=== PATIENT | female | born 1950 | race African-American/Black ===

== ENCOUNTER 2016-11-21 16:13 | Inpatient (IN) | payer OTHER ==
[2016-11-21] MEDS ORDERED: BAYER CHEWABLE81 MG PO (16:53)
[2016-11-21 17:01] VITALS: BP 155/67; BMI 27.8
--- NOTE | 2016-11-21 17:30 | NUR ---
OFF FLOOR TO MRI VIA STRETCHER.
--- NOTE | 2016-11-21 18:10 | NUR ---
RETURNED TO ROOM FROM MRI.
--- NOTE | 2016-11-21 19:20 | NUR ---
RECIEVED SHIFT REPORT. PT IS LYING IN BED. ALERT AND ORIENTED AND ABLE TO VERBALIZE NEEDS. IV IS PATENT AND SALINE LOC AT THIS TIME. PT DENIES ANY PAIN AT THIS TIME. NO NEEDS ARE VERBALIZED AT THIS TIME. WILL CONTINUE TO MONITOR. VISITOR IS AT THE BEDSIDE. SIDE RAILS ARE UP X 2. BED IS IN LOWEST POSITION. BED ALARM PLACED ON FOR SAFETY. CALL LIGHT IS WITHIN REACH.
[2016-11-21 20:00] VITALS: BP 143/65
--- NOTE | 2016-11-21 20:00 | NUR ---
SHIFT ASSESSMENT COMPLETED. 16F INDWELLING CATHETER PLACED WITH NO RESISTANCE AND STERILE TECHNIQUE. RECIEVED BACK 200ML MOON URINE. PT TOLERATED WELL. URINE SAMPLE COLLECTED PER ORDER. SCD'S PLACED ON PT. NO NEEDS ARE VOICED. WILL MONITOR. SIDE RAILS X 2. BED LOW. BED ALARM ON. CALL LIGHT IN REACH.
--- NOTE | 2016-11-21 20:17 | NUR ---
URINE SENT TO LABS FOR WARRENTED TESTS.
[2016-11-21 21:06] LABS: APPEARANCE CLEAR (CLEAR); BILIRUBIN NEGATIVE (NEGATIVE); COLOR YELLOW (YELLOW); GLUCOSE NEGATIVE (NEGATIVE); KETONE NEGATIVE (NEGATIVE); NITRITE NEGATIVE (NEGATIVE); PROTEIN NEGATIVE (NEGATIVE); SPECIFIC GRAVITY 1.025 (1.005-1.020); UROBILINOGEN NORMAL (NORMAL)
[2016-11-21 21:40] LABS: BASOPHILS 0.2 % (0-2); EOSINOPHILS 2.5 % (0-7); HEMATOCRIT 38.1 % (36.0-48.0); HEMOGLOBIN 12.5 g/dL (12-16); LYMPHOCYTES 26.4 % (15-50); MCH 30.6 pg (26.0-34.0); MCHC 32.8 g/dL (31.0-37.0); MCV 93.2 fL (80.0-100.0); MEAN PLATELET VOLUME 10.3 fL (7.4-10.4); MONOCYTES 9.1 % (2-11); NEUTROPHILS 61.8 % (40-80); PLATELET COUNT 175 10x3/uL (130-400); RBC 4.09 10x6/uL (4.00-5.40); RDW 13.6 % (11.5-14.5); WBC 4.1 10x3/uL (4.8-10.8)
[2016-11-21 21:57] LABS: ALBUMIN 3.6 g/dL (3.4-5.0); ANION GAP 11.4 mmol/L (8-16); BILIRUBIN - TOTAL 1.27 mg/dL (0.2-1.3); CALCIUM 11.7 mg/dL (8.5-10.1); CARBON DIOXIDE 27.3 mmol/L (21.0-32.0); CREATININE - SERUM 0.9 mg/dL (0.6-1.3); POTASSIUM - SERUM 3.7 mmol/L (3.5-5.1); PROTEIN - SERUM 8.2 g/dL (6.4-8.2)
[2016-11-22] VITALS (13 sets, daily range): BP systolic 145–160; BP diastolic 57–79
--- NOTE | 2016-11-22 07:45 | NUR ---
PT AOX4 RESP EVEN AND NONLABORED PT DENIES NEEDS AT THIS TIME IV TO LEFT AC PATENT AND INTACT SRX2 BED AT LOWEST SETTING CALL LIGHT WITHIN REACH WILL CONTINUE TO MONITOR
[2016-11-22 10:52] LABS: BASOPHILS 0.4 % (0-2); HEMATOCRIT 34.7 % (36.0-48.0); HEMOGLOBIN 11.4 g/dL (12-16); MCH 30.7 pg (26.0-34.0); MCHC 32.9 g/dL (31.0-37.0); MCV 93.5 fL (80.0-100.0); MEAN PLATELET VOLUME 10.3 fL (7.4-10.4); MONOCYTES 9.2 % (2-11); NEUTROPHILS 60.4 % (40-80); PLATELET COUNT 156 10x3/uL (130-400); RBC 3.71 10x6/uL (4.00-5.40); RDW 13.7 % (11.5-14.5); WBC 4.5 10x3/uL (4.8-10.8)
[2016-11-22 11:02] LABS: ALBUMIN 3.2 g/dL (3.4-5.0); BILIRUBIN - TOTAL 0.8 mg/dL (0.2-1.3); CALCIUM 11.3 mg/dL (8.5-10.1); CARBON DIOXIDE 26.9 mmol/L (21.0-32.0); CREATININE - SERUM 0.9 mg/dL (0.6-1.3); POTASSIUM - SERUM 3.9 mmol/L (3.5-5.1); PROTEIN - SERUM 7.3 g/dL (6.4-8.2)
--- NOTE | 2016-11-22 14:12 | NUR ---
Patient Name: JEVON SOLOMON Admission Status: Elective Accout number: [id number] Admission Date: 11-21-2016 : 1950 Admission Diagnosis: Attending: ALICIA CHOI Current LOS: 1 Anticipated DC Date: 11-25-2016 Planned Disposition: Inpatient Rehab Facility Primary Insurance: [facility] [place] BY [facility] MED[employer] Discharge Planning Comments: CM MET WITH PATIENT AND SON (JHOANA) REGARDING D/C NEEDS AND PLANS. PATIENT STATED SHE LIVES AT HOME WITH SON AND WILL RETURN THERE. PATIENT HAS 8 STEPS TO ENTER HOME AND NO STAIRS INSIDE. PATIENT IS INDEPENDENT WITH HER CARE AND HAS NO DME AT HOME. PATIENTS PCP IS DR. VILLAGRAN AND PHARMACY IS [facility] ON [facility]. PATIENT WANTS TO GO TO IP REHAB BUT HAS SIGNED THE GURMEET FORM FOR [facility] [facility] AND [facility] IF NOT ACCEPTED TO IP REHAB. CM WILL CONTINUE TO FOLLOW PATIENT WITH D/C NEEDS AND PLANS. PCP DR. TYSHAWN DEJESUS ON [facility] [phone] JHOANA (SON) [phone] Lunch Truck Operator: Pascale Jaramillo Is the patient Alert and Oriented? Yes 0 * How many steps to enter\exit or inside your home? 8 0 * PCP DR. VILLAGRAN 0 * Pharmacy [facility] 0 * Preadmission Environment Home with Family 0 * ADLs Independent 0 * Equipment None 0 * List name and contact numbers for known caregivers / representatives who currently or will assist patient after discharge: JHOANA (SON) [phone] 0 * Community resources currently utilized None 0 * Additional services required to return to the preadmission environment? Yes 0 * Can the patient safely return to the preadmission environment? No 0 * Has this patient been hospitalized within the prior 30 days at any hospital? No 0 Grand Total: 0
--- NOTE | 2016-11-22 19:35 | NUR ---
RECIEVED SHIFT REPORT. PT IS IN SURGERY AT THIS TIME.
--- NOTE | 2016-11-22 20:10 | NUR ---
RECIEVED PT FROM SURGERY. VSS. SCD'S HOOKED UP. IV PATENT AND FLUIDS RUNNING FROM SURGERY. RUVALCABA IS DRAINING URINE BY GRAVITY. DRESSING TO RIGHT HIP C/D/I. O2 @ 2 PER NASAL CANNULA. PT IS ALERT AND ORIENTED AND ABLE TO VERBALIZE NEEDS. PT DENIES ANY PAIN AT THIS TIME. NO NEEDS ARE VERBALIZED AT THIS TIME. WILL CONTINUE TO MONITOR. FAMILY IS AT THE BEDSIDE. SIDE RAILS ARE UP X 2. BED IS IN LOWEST POSITION. BED ALARM IS PLACED ON FOR SAFETY. CALL LIGHT IS WITHIN REACH.
--- NOTE | 2016-11-22 20:34 | NUR ---
SHIFT ASSESSMENT COMPLETED. FLUIDS AND NIGHT MEDS ADMINISTERED PER ORDER. NO NEEDS ARE VOICED. WILL MONITOR. FAMILY AT BEDSIDE. SIDE RAILS X 2. BED LOW. CALL LIGHT IN REACH.
[2016-11-23] VITALS (7 sets, daily range): BP systolic 112–165; BP diastolic 59–78
[2016-11-23 06:56] LABS: BASOPHILS 0.2 % (0-2); EOSINOPHILS 0.2 % (0-7); HEMATOCRIT 33.3 % (36.0-48.0); HEMOGLOBIN 10.8 g/dL (12-16); IMMATURE GRANULOCYTES 0.2 % (0-5); LYMPHOCYTES 13.9 % (15-50); MCH 30.3 pg (26.0-34.0); MCHC 32.4 g/dL (31.0-37.0); MCV 93.3 fL (80.0-100.0); MEAN PLATELET VOLUME 10.4 fL (7.4-10.4); MONOCYTES 9.5 % (2-11); PLATELET COUNT 171 10x3/uL (130-400); RBC 3.57 10x6/uL (4.00-5.40); RDW 13.7 % (11.5-14.5); WBC 5.3 10x3/uL (4.8-10.8)
[2016-11-23 07:00] LABS: ALBUMIN 2.9 g/dL (3.4-5.0); ANION GAP 12.7 mmol/L (8-16); BILIRUBIN - TOTAL 0.8 mg/dL (0.2-1.3); CALCIUM 10.3 mg/dL (8.5-10.1); CARBON DIOXIDE 24.3 mmol/L (21.0-32.0); PROTEIN - SERUM 6.4 g/dL (6.4-8.2)
--- NOTE | 2016-11-23 09:00 | NUR ---
REPORT RECIEVED ASSUMED CARE. PATIENT IN BED WITH IV INTACT. NO COMPLAINTS AT THIS TIME. ASSESSMENT COMPLETE, VS STABLE. FAMILY AT BEDSIDE. DRESSING TO RIGHT HIP CDI. CALL LIGHT WITHIN REACH.
--- NOTE | 2016-11-23 12:00 | NUR ---
PATIENT SITTING UP IN CHAIR AT THIS TIME WITH NO COMPLAINTS. CALL LIGHT WITHIN REACH.
--- NOTE | 2016-11-23 13:21 | OP ---
PATIENT NAME: JEVON SALDAÑA MEDICAL RECORD: [id number] :[birth year] LOCATION:[id number] ADMISSION DATE:11/21/16 SURGEON: JEAN CARLOS MCGINNIS DO DATE OF OPERATION: 11/22/2016 PROCEDURE PERFORMED: Right total hip arthroplasty. PREOPERATIVE DIAGNOSIS: Right femoral neck fracture. POSTOPERATIVE DIAGNOSES: Right femoral neck fracture with a suspicion for possible pathologic fracture, bone was sent for pathology. INDICATIONS: Ms. Saldaña is a 66-year-old female who presented to a walk-in clinic after falling a couple days ago. She cannot bear weight on the right hip. 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 She had not had any other systemic illnesses or problems. She was seen in the walk-in clinic. X-rays were taken and femoral neck fractures seen. Due to her history they ordered an MRI. MRI was read as a femoral neck fracture, did not appear to be suspicious on the MRI for pathologic fracture. After seeing that and seeing the x-rays, she was consented for a right total hip arthroplasty. Due to her age and activity level, she has not had any antecedent groin pain or any problems with her hip prior to this. After discussing these findings with her, she was consented for right total hip arthroplasty. SURGEON: Jean Carlos Mcginnis DO COMPLICATIONS: None. ESTIMATED BLOOD LOSS: 200 mL. DESCRIPTION OF PROCEDURE: The patient was taken to the operative suite, placed in supine position, given general anesthetic and intubated. Once this was done, the boot on the right leg was placed with a stocking Webril and Coban and then placed into the boot with pad over the dorsum of the foot and the anterior tibia and she was moved over to the Medacta table and slid down to the peroneal post and the boot was put onto the traction table. Once this was done, the left leg was put in a well leg elise and well padded. The right arm was positioned as well across her chest and well padded. The right leg was then draped out with a 10-15 drape. Once this was done, a timeout was performed, everyone was in agreement this is our correct patient, the correct side and the correct patient. She was given 2 grams of Ancef preoperatively. She does have a PENICILLIN ALLERGY; however, she did not have a reaction to the Ancef. Once this is done, the right leg was prepped and draped in sterile fashion and the procedure commenced with incision made down to the tensor fascia andrea fascia, it was then incised. The anterior fascia was from the muscle belly. Adson Vic was then used to push the muscle belly posterior in the fascia anteriorly. Then, dissection was carefully made down to the rectus fascia. This was divided and then the retractor was placed in the horizontal position retracting tensor fascia andrea laterally and the rectus medially. Careful dissection was made down to the vessels. The ascending branch of the lateral femoral circumflex, these were identified and tied off and coagulated with the Aquamantys and then divided with the plasma blade. Dissection was made down to the capsule at that point, removing the fat pad and releasing the rectus off its origin of the pelvis, the indirect head. Then, 2 Hohmann were placed around the femoral neck. A capsulotomy was then performed and the capsule was tagged. OPERATIVE REPORT [id number] JEVON SALDAÑA Once this was done, the retractors were placed intracapsular and a femoral neck cut was made. The bone was then taken in chunks as it fell right apart and this was likely due to the fracture. The femoral head corkscrew was then placed into the femoral head and the femoral head was removed from the acetabulum. At that time, it was inspected and seemed to have some areas of blackness on the cartilage itself of the femoral head and then the acetabulum was viewed and the same thing was seen there to have areas of blackness in the cartilage of the acetabulum. Once this was done, the pathologist was called in order to come look at the pathology of the bone. They informed that they would look at it tomorrow morning. The procedure proceeded then with reaming acetabulum, first medializing and then reaming up to 52 and then doing a line to line cup of 52 having good press fit with a dual mobility cup in the correct position. This was done under fluoroscopy. Approximately 45 degrees of abduction and 15-20 degrees of anteversion. Once this was done, attention was drawn to the femur. Releases of the pubofemoral ligament and the posterior capsule were done. A Hohmann were placed around the posterior femur and over the greater trochanter. The femur was then externally rotated and adducted and extended in order to get into good position. Cookie cutter was then made to enter the canal and the canal finder was then used to enter the canal itself. Broaching then began with a double 0 up to a 5 and 5 was trialed with a minus neck and not seem to be long enough; therefore a 6 broach was placed in and the 6 with minus neck fit very well and seemed to be appropriate length on x-ray. Once this was done, the final implants were then given and passed off with a minus neck, 28 head and a 52 dual mobility head placed on that. The 6 stem was also used. This was on the stem. Once this is all entered, the hip was reduced and x-rays were taken and seemed to be in a very good position and the femur was inspected with fluoro not seeing any cracks distally or proximally any fractures. After this was done, the wound was irrigated thoroughly and the capsule was closed with a #1 Vicryl pop off. Irrigation was then done again and dried very well. Inés was then placed into the wound and the tensor fascia andrea fascia was closed first with a couple of kelgck-lc-hyaik stitches with #1 pop off and then in a locked running stitch with a #1 Vicryl. Once this was done, the skin was closed with 2-0 Vicryl in an inverted interrupted fashion and a Prineo Dermabond was placed over the skin and then a Telfa and Tegaderm were placed over the wound. The patient was awakened in stable condition and taken to recovery. Estimated blood loss is 200. TRANSINT:[id number] Voice Confirmation ID: [id number] DOCUMENT ID: [id number] JEAN CARLOS MCGINNIS DO at 1321 CC: [id number] DICTATION DATE: 11/22/161918 FISH FARMER: 11/22/16 2332 ADM IN [facility] [address] [place] [address]
--- NOTE | 2016-11-23 17:05 | NUR ---
PAGED RENETTA FOR ORDERS FOR TEMP.
--- NOTE | 2016-11-23 17:45 | NUR ---
NEW ORDERS RECIEVED AND CARRIED OUT.
--- NOTE | 2016-11-23 18:00 | NUR ---
SPOKE WITH DR. CHOI ABOUT PATIENTS FEVER. NEW ORDERS RECIEVED AND CARRIED OUT. PATIENT IN BED WITH IV INTACT. NO COMPLAINTS AT THIS TIME. CALL LIGHT WITHIN REACH.
--- NOTE | 2016-11-23 19:25 | NUR ---
RECIEVED SHIFT REPORT. PT IS LYING IN BED. ALERT AND ORIENTED AND ABLE TO VERBALIZE NEEDS. IV IS PATENT AND FLUIDS ARE RUNNING PER ORDER. RUVALCABA IS DRAINING URINE BY GRAVITY. DRESSING TO RIGHT HIP C/D/I. PT STATES PAIN IS 02/14. SCD'S ON. PT WAS UP WITH PHYSICAL THERAPY TODAY. NO NEEDS ARE VERBALIZED AT THIS TIME. WILL CONTINUE TO MONITOR. SIDE RAILS ARE UP X 2. BED IS IN LOWEST POSITION. BED ALARM IS ON FOR SAFETY. CALL LIGHT IS WITHIN REACH.
--- NOTE | 2016-11-23 20:27 | NUR ---
SHIFT ASSESSMENT COMPLETED. NIGHT MEDS GIVEN WITH NO PROBLEMS. NO NEEDS ARE VOICED. WILL MONITOR. SIDE RAILS X 2. BED LOW. BED ALARM ON. CALL LIGHT IN REACH.
[2016-11-24] VITALS: BP 110/60
--- NOTE | 2016-11-24 04:10 | NUR ---
URINE SENT TO LAB FOR WARRENTED TESTS.
[2016-11-24 05:50] LABS: BASOPHILS 0.2 % (0-2); EOSINOPHILS 1.2 % (0-7); HEMATOCRIT 29.1 % (36.0-48.0); HEMOGLOBIN 9.6 g/dL (12-16); IMMATURE GRANULOCYTES 0.4 % (0-5); LYMPHOCYTES 21.4 % (15-50); MCH 30.2 pg (26.0-34.0); MCV 91.5 fL (80.0-100.0); MEAN PLATELET VOLUME 10.4 fL (7.4-10.4); MONOCYTES 13.8 % (2-11); PLATELET COUNT 161 10x3/uL (130-400); RBC 3.18 10x6/uL (4.00-5.40); RDW 13.4 % (11.5-14.5); WBC 4.9 10x3/uL (4.8-10.8)
[2016-11-24 06:12] LABS: ALBUMIN 2.3 g/dL (3.4-5.0); ANION GAP 9.3 mmol/L (8-16); BILIRUBIN - TOTAL 0.78 mg/dL (0.2-1.3); CALCIUM 10.5 mg/dL (8.5-10.1); CARBON DIOXIDE 26.3 mmol/L (21.0-32.0); CREATININE - SERUM 0.9 mg/dL (0.6-1.3); POTASSIUM - SERUM 3.6 mmol/L (3.5-5.1); PROTEIN - SERUM 6.3 g/dL (6.4-8.2)
--- NOTE | 2016-11-24 07:45 | NUR ---
PT AOX4 RESP EVEN AND NONLABORED PT DENIES NEEDS AT THIS TIME SRX2 BED AT LOWEST SETTING CALL LIGHT WITHIN REACH WILL CONTINUE TO MONITOR
[2016-11-24 08:24] LABS: APPEARANCE CLEAR (CLEAR); BILIRUBIN NEGATIVE (NEGATIVE); COLOR YELLOW (YELLOW); GLUCOSE NEGATIVE (NEGATIVE); KETONE NEGATIVE (NEGATIVE); NITRITE NEGATIVE (NEGATIVE); PROTEIN NEGATIVE (NEGATIVE); SPECIFIC GRAVITY 1.015 (1.005-1.020); UROBILINOGEN NORMAL (NORMAL)
[2016-11-24 08:28] LABS: BACTERIA FEW /hpf (NONE SEEN); EPITHELIAL CELLS 0-5 /hpf (0-5); HYALINE CAST OCC /lpf (NONE SEEN); MUCUS >1+ /lpf (NONE SEEN); RED CELLS - URINE 0-5 /hpf (0-5); WHITE CELLS - URINE OCC /hpf (0-5)
[2016-11-24 08:37] VITALS: BP 133/64
[2016-11-24 12:25] VITALS: BP 140/68
--- NOTE | 2016-11-24 14:17 | NUR ---
OT NOTE: DISREGARD FIRST OT EVAL. INCORRECT PATIENT. REFER TO LATEST EVAL FOR CORRECT INFORMATION
[2016-11-24 15:56] VITALS: BP 144/64
[2016-11-24 20:10] VITALS: BP 135/63
--- NOTE | 2016-11-24 20:15 | NUR ---
ALERT,ORIENTED.WATCHING TV. NO COMPLAINTS VOICED. TYLENOL GIVEN FOR ELEVATED TEMP. RESP EVEN AND UNLABORED.SCD ON. IV INFUSING TO LEFT HAND WITOUT REDNESS OR EDEMA NOTED. CL IN REACH.
[2016-11-25] VITALS: BP 114/57
--- NOTE | 2016-11-25 03:15 | NUR ---
PT RESTING QUIETLY, EYES CLOSED. RESP EVEN, UNLABORED. NO DISTRESS NOTED. CONTINUE NUT SHELLER'S PLAN OF CARE.
[2016-11-25 04:00] VITALS: BP 117/56
--- NOTE | 2016-11-25 05:19 | NUR ---
RESTING QUIETLY WITHL NO DISTRESS NOTED. RESP EVEN AND UNALBORED. CL IN REACH
[2016-11-25 06:08] LABS: BASOPHILS 0.3 % (0-2); EOSINOPHILS 0.8 % (0-7); HEMATOCRIT 25.6 % (36.0-48.0); HEMOGLOBIN 8.5 g/dL (12-16); IMMATURE GRANULOCYTES 0.3 % (0-5); LYMPHOCYTES 19.9 % (15-50); MCH 30.2 pg (26.0-34.0); MCHC 33.2 g/dL (31.0-37.0); MCV 91.1 fL (80.0-100.0); MEAN PLATELET VOLUME 10.5 fL (7.4-10.4); MONOCYTES 16.3 % (2-11); NEUTROPHILS 62.4 % (40-80); PLATELET COUNT 172 10x3/uL (130-400); RBC 2.81 10x6/uL (4.00-5.40); RDW 13.4 % (11.5-14.5); WBC 3.8 10x3/uL (4.8-10.8)
[2016-11-25 06:34] LABS: ALBUMIN 2.1 g/dL (3.4-5.0); ALKALINE PHOSPHATASE 61 U/L (46-116); ALT (SGPT) 14 U/L (10-68); BILIRUBIN - TOTAL 0.56 mg/dL (0.2-1.3); CALC OSMOLALITY 279 mosm/kg (275-300); CALCIUM 10.3 mg/dL (8.5-10.1); CARBON DIOXIDE 27.8 mmol/L (21.0-32.0); CHLORIDE - SERUM 108 mmol/L (98-107); CREATININE - SERUM 0.8 mg/dL (0.6-1.3); GLUCOSE 102 mg/dL (74-106); POTASSIUM - SERUM 3.7 mmol/L (3.5-5.1); PROTEIN - SERUM 6.1 g/dL (6.4-8.2); SODIUM 141 mmol/L (136-145); UREA NITROGEN 11 mg/dL (7-18); eGFR NON AFRICAN AMERICAN 76 mL/min (90-120)
--- NOTE | 2016-11-25 07:30 | NUR ---
PT AOX4 RESP EVEN AND NONLABORED PT DENIES NEEDS AT THIS TIME SRX2 BED AT LOWEST SETTING CALL LIGHT WITHIN REACH WILL CONTINUE TO MONITOR
[2016-11-25 08:11] VITALS: BP 134/59
[2016-11-25 12:37] VITALS: BP 124/69
[2016-11-25 16:18] VITALS: BP 129/61
--- NOTE | 2016-11-25 19:00 | NUR ---
REPORT RECEIVED AND CARE OF PT ASSUMED. PT LYING IN SUPINE POSITION WATCHING TV. IV IN LEFT HAND PATENT WITH NS INFUSING AT 50 ML/HR. RUVALCABA CATHETER DRAINING TO GRAVITY WITH YELLOW URINE IN COLLECTION BAG. DRESSING ON LEFT HIP CLEAN, DRY AND INTACT. SCD'S IN PLACE ON BLE. WILL MONITOR CLOSELY FOR NEEDS.
[2016-11-25 20:00] VITALS: BP 132/79
--- NOTE | 2016-11-25 20:11 | NUR ---
HS MEDICATIONS GIVEN. WILL CONTINUE TO MONITOR FOR NEEDS.
--- NOTE | 2016-11-25 23:26 | NUR ---
PT RESTING QUIETLY IN SUPINE POSITION WITH EYES CLOSED AND EASY RESPIRATIONS. CALL LIGHT WITHIN REACH.
[2016-11-26] VITALS (16 sets, daily range): BP systolic 107–155; BP diastolic 53–84
[2016-11-26 05:34] LABS: BASOPHILS 0.2 % (0-2); EOSINOPHILS 3.1 % (0-7); HEMATOCRIT 24.2 % (36.0-48.0); LYMPHOCYTES 26.6 % (15-50); MCH 30.3 pg (26.0-34.0); MCHC 33.1 g/dL (31.0-37.0); MCV 91.7 fL (80.0-100.0); MEAN PLATELET VOLUME 9.9 fL (7.4-10.4); NEUTROPHILS 56.1 % (40-80); PLATELET COUNT 195 10x3/uL (130-400); RBC 2.64 10x6/uL (4.00-5.40); RDW 13.6 % (11.5-14.5); WBC 4.1 10x3/uL (4.8-10.8)
[2016-11-26 06:10] LABS: ALBUMIN 2.1 g/dL (3.4-5.0); ALKALINE PHOSPHATASE 65 U/L (46-116); ALT (SGPT) 26 U/L (10-68); BILIRUBIN - TOTAL 0.39 mg/dL (0.2-1.3); CALC OSMOLALITY 277 mosm/kg (275-300); CALCIUM 10.8 mg/dL (8.5-10.1); CARBON DIOXIDE 29.7 mmol/L (21.0-32.0); CHLORIDE - SERUM 107 mmol/L (98-107); CREATININE - SERUM 0.8 mg/dL (0.6-1.3); GLUCOSE 103 mg/dL (74-106); POTASSIUM - SERUM 4.4 mmol/L (3.5-5.1); PROTEIN - SERUM 5.5 g/dL (6.4-8.2); SODIUM 140 mmol/L (136-145); UREA NITROGEN 11 mg/dL (7-18); eGFR NON AFRICAN AMERICAN 76 mL/min (90-120)
--- NOTE | 2016-11-26 07:40 | NUR ---
PT AOX4 RESP EVEN AND NONLABORED PT DENIES NEEDS AT THIS TIME IV TO LEFT HAND PATENT AND INTACT AT THIS TIME SRX2 BED AT LOWEST SETTING CALL LIGHT WITHIN REACH WILL CONTINUE TO MONITOR
--- NOTE | 2016-11-26 19:00 | NUR ---
REPORT RECEIVED AND CARE OF PT ASSUMED. PT LYING IN LOW PETERS'S POSITION WITH EYES CLOSED. IV IN LEFT WRIST PATENT WITH PRBC'S INFUSING AT 125 ML / HR. WILL MONITOR FOR NEEDS.
--- NOTE | 2016-11-26 19:30 | NUR ---
PT WITH ELEVATED TEMP OF 99.9 DEGREES. GAVE TYLENOL 500 MG PO PER PRN ORDER.
--- NOTE | 2016-11-26 21:40 | NUR ---
1ST UNIT OF PRBC'S COMPLETE. VITALS STABLE AND PT IS NOW AFEBRILE.
--- NOTE | 2016-11-26 22:30 | NUR ---
GAVE LASIX 20 MG IVP PER ORDER TO GIVE BETWEEN UNITS OF PRBC'S. ALSO GAVE 25 MG BENADRYL IVP PER PRN ORDER, PRE MED PRIOR TO GIVING 2ND UNIT OF BLOOD.
--- NOTE | 2016-11-26 22:47 | NUR ---
STARTED 2ND UNIT OF PRBC'S. VITALS STABLE AND PT IS AFEBRILE.
--- NOTE | 2016-11-26 23:54 | NUR ---
VITALS REMAIN STABLE. FAMILY MEMBER IS AT BEDSIDE.
[2016-11-27] VITALS (7 sets, daily range): BP systolic 122–140; BP diastolic 60–79
--- NOTE | 2016-11-27 01:00 | NUR ---
2ND UNIT OF PRBC'S COMPLETE. VITALS REMAIN STABLE. WILL CONTINUE TO MONITOR FOR NEEDS.
--- NOTE | 2016-11-27 03:52 | NUR ---
ALL TUBING CHANGED AND TAGGED WITH NEXT CHANGE DAY.
[2016-11-27 06:01] LABS: BASOPHILS 0.6 % (0-2); EOSINOPHILS 2.2 % (0-7); IMMATURE GRANULOCYTES 0.3 % (0-5); LYMPHOCYTES 27.1 % (15-50); MCH 30.1 pg (26.0-34.0); MCHC 32.9 g/dL (31.0-37.0); MCV 91.5 fL (80.0-100.0); MEAN PLATELET VOLUME 9.8 fL (7.4-10.4); NEUTROPHILS 52.8 % (40-80); PLATELET COUNT 222 10x3/uL (130-400); RDW 13.9 % (11.5-14.5); WBC 3.6 10x3/uL (4.8-10.8)
[2016-11-27 06:02] LABS: HEMATOCRIT 31.3 % (36.0-48.0); HEMOGLOBIN 10.3 g/dL (12-16); RBC 3.42 10x6/uL (4.00-5.40)
[2016-11-27 06:19] LABS: ALBUMIN 2.1 g/dL (3.4-5.0); ALKALINE PHOSPHATASE 66 U/L (46-116); ALT (SGPT) 32 U/L (10-68); CALC OSMOLALITY 276 mosm/kg (275-300); CALCIUM 11.2 mg/dL (8.5-10.1); CARBON DIOXIDE 30.4 mmol/L (21.0-32.0); CHLORIDE - SERUM 104 mmol/L (98-107); CREATININE - SERUM 0.8 mg/dL (0.6-1.3); GLUCOSE 99 mg/dL (74-106); POTASSIUM - SERUM 3.8 mmol/L (3.5-5.1); PROTEIN - SERUM 6.3 g/dL (6.4-8.2); SODIUM 138 mmol/L (136-145); eGFR NON AFRICAN AMERICAN 76 mL/min (90-120)
[2016-11-27 06:21] LABS: UREA NITROGEN 15 mg/dL (7-18)
--- NOTE | 2016-11-27 07:45 | NUR ---
A&O, NO DISTRESS NOTED, DENIES NEEDS, BED LOWEST POSITION, CALL LIGHT IN REACH, WILL CONTINUE TO MONITOR
[2016-11-27] MEDS ORDERED: FLORAJEN3 CAPS460 MG PO (11:38)
[2016-11-27] MEDS ORDERED: COLACE100 MG PO (11:39)
[2016-11-27] MEDS ORDERED: ELIQUIS2.5 MG PO (11:41)
[2016-11-27] MEDS ORDERED: LEVAQUIN750 MG PO (11:44)
--- NOTE | 2016-11-27 14:54 | NUR ---
CM REASSESSMENT NOTE: PATIENT IS DISCHARGING TO [facility] BY FACILITY [facility]AN TO A SKILLED BED TODAY. PATIENT IS NOTIFYING HER SON.
--- NOTE | 2016-11-27 15:54 | NUR ---
DISCHARGE INSTRUCTIONS GIVEN TO PT, CALLED REPORT TO GIOVANY MOULTON AT [facility], IV REMOVED TIP INTACT, PEG TOBIAS'Lucia TIP INTACT, QUESTIONS ANSWERED, DISCHARGED PER WC IN [facility] VAN WITH BELONGINGS
--- NOTE | 2017-01-02 10:49 | DS ---
PATIENT:JEVON SOLOMON :54 MEDICAL RECORD: [id number] DISCHARGE SUMMARY ADMISSION DATE: 11/21/16 DISCHARGE DATE: 11/27/16 This is a discharge dated 11/27/2016 from the inpatient hospital. DISCHARGE DIAGNOSES: 1. Right hip fracture. 2. Acute blood loss anemia. 3. Hypertension. 4. Hypothyroidism. 5. Tremor. 6. CVA by history. CONSULTS THIS HOSPITALIZATION: Orthopedics with Dr. Murrieta. PROCEDURES THIS HOSPITALIZATION: Right total hip arthroplasty on 11/22/[address] Murrieta. HOSPITAL COURSE: Full H&P is located elsewhere on the chart on this 66-year-old female who is admitted after a fall where she sustained a right hip fracture. She was seen in consult by Dr. Murrieta with orthopedics and underwent a right total hip arthroplasty on 11/22/2016. Electrolytes were managed by protocol. She had Merrem for postop antibiotic. She did develop acute blood loss anemia and was transfused with 2 units of packed red blood cells. Case management was involved for discharge planning. She was considered stable for discharge on 11/27/2016. DISCHARGE MEDICATIONS: As per discharge medication reconciliation. DISCHARGE DISPOSITION: The patient is discharged home. She will continue her current diet and level of activity. She will follow up with [facility] and will have home health for PT and OT. She will follow up with primary care and specialists as directed. At least 30 minutes was spent in this discharge activity. TRANSINT:[id number] Voice Confirmation ID: [id number] DOCUMENT ID: [id number] Dictated By: RICARDO STEVEN I have interviewed/examined the above patient and agree with these documented findings. HOLLY VILLATORO MD at 1358 at 1049 CC: [id number] DICTATION DATE: 12/24/16 1550 HUB ASSOCIATE: 12/24/16 1748 DIS IN 11/27/16 [facility] [address] [place] [address]
== END 2016-11-27 16:10 | DRG 470 ==
LOC: D.MS 16:13
PROVIDERS: Family Medicine; Orthopaedic Surgery; ADMIT Family Medicine
PROC: 0SR90JZ Replacement of Right Hip Joint with Synthetic Substitute, Open Approach (ICD-10-PCS; principal; 2016-11-22 11:25)
DX: S72.001A Fracture of unspecified part of neck of right femur, initial encounter for closed fracture (principal); D62 Acute posthemorrhagic anemia; W10.9XXA Fall (on) (from) unspecified stairs and steps, initial encounter; I10 Essential (primary) hypertension; E03.9 Hypothyroidism, unspecified; D49.3 Neoplasm of unspecified behavior of breast